=== PATIENT | male | born 1970 | race Caucasian/White ===

== ENCOUNTER 2024-05-21 08:20 | Inpatient (IN) | payer BC, OTHER ==
[2024-05-21] MEDS ORDERED: Sodium Chloride 0.9% 1,000 ML IV SCH (09:00)
[2024-05-21] MEDS: Sodium Chloride 0.9% 10 ML Syringe FLUSH ONE (09:03)
[2024-05-21] MEDS: Sodium Chloride 0.9% 100 ML IV SCH (09:03)
[2024-05-21] MEDS: Iopamidol 612 MG/ML 100 ML Bottle IV PRN (09:03)
[2024-05-21 09:05] LABS: APPEARANCE,URINE SLIGHTLY CLOUDY (CLEAR); BILIRUBIN,URINE SMALL (NEGATIVE); COLOR,URINE YELLOW (YELLOW); GLUCOSE,URINE 100 mg/dL (NEGATIVE); KETONES,URINE 40 mg/dL (NEGATIVE); LEUKOCYTE ESTERASE,URINE NEGATIVE (NEGATIVE); NITRITE,URINE NEGATIVE (NEGATIVE); OCCULT BLOOD,URINE NEGATIVE (NEGATIVE); PH,URINE 5.5 (5.0-8.0); PROTEIN,URINE 30 mg/dL (NEGATIVE); UROBILINOGEN,URINE 0.2 EU/dL (0.2-1.0)
[2024-05-21 09:06] LABS: EPITHELIAL CELLS,URINE NOT SEEN; RBC,URINE NOT SEEN (0-5); WBC,URINE 0-5 (0-5)
[2024-05-21 09:07] LABS: AMORPHOUS SEDIMENT,URINE RARE; BACTERIA,URINE RARE; MUCUS,URINE MODERATE
[2024-05-21 09:08] LABS: BASOPHILS ABSOLUTE AUTO 0.03 K/uL (0.00-0.10); BASOPHILS PERCENT AUTO 0.3 % (0.1-1.3); HEMATOCRIT 40.7 % (38.4-49.7); HEMOGLOBIN 14.8 g/dL (12.9-16.9); IMMATURE GRAN ABSOLUTE AUTO 0.02 K/uL (0.00-0.23); IMMATURE GRAN PERCENT AUTO 0.2 % (0.0-0.7); LYMPHOCYTES PERCENT AUTO 7.1 % (11.4-47.7); MEAN CORPUSCULAR HEMOGLOBIN 35.2 pg (31.6-35.5); MEAN CORPUSCULAR HGB CONC 36.4 g/dL (31.6-35.5); MEAN CORPUSCULAR VOLUME 96.9 fL (81.4-99.0); MONOCYTES ABSOLUTE AUTO 0.66 K/uL (0.20-0.90); MONOCYTES PERCENT AUTO 5.8 % (3.3-12.6); NEUTROPHILS ABSOLUTE AUTO 9.81 K/uL (1.0-7.6); NEUTROPHILS PERCENT AUTO 86.6 % (40.0-78.1); PLATELET COUNT,PLT 153 K/uL (130-375); WHITE BLOOD CELL COUNT,WBC 11.3 K/uL (3.2-11.0)
[2024-05-21] MEDS: Sodium Chloride 0.9% 1,000 ML IV SCH ×2 (09:18→10:57)
[2024-05-21] MEDS: Ondansetron 4 MG/2 ML SDV IVPUSH ONE (09:19)
[2024-05-21] MEDS: fentaNYL 50 MCG/ML SDV IVPUSH ONE ×2 (09:20→10:46)
[2024-05-21] MEDS: LORazepam 2 MG/ML SDV IVPUSH ONE (09:22)
[2024-05-21 09:29] LABS: A/G RATIO 1.2 (1.2-2.2); ALANINE AMINOTRANSFERASE,ALT 33 U/L (12-78); ALBUMIN 3.8 g/dL (3.4-5.0); ALKALINE PHOSPHATASE 66 U/L (46-116); ASPARTATE AMNIOTRANSFERASE,AST 43 U/L (15-37); BILIRUBIN TOTAL 1.5 mg/dL (0.2-1.0); BLOOD UREA NITROGEN,BUN 5 mg/dL (7-18); CALCIUM 9.3 mg/dL (8.5-10.1); CARBON DIOXIDE,CO2 19 mmol/L (21-32); CHLORIDE,CL 98 mmol/L (100-108); EST CRCL DRUG DOSING (CG) 76.73 mL/min; ESTIMATED GFR 90 mL/min (>60); GLUCOSE RANDOM 182 mg/dL (74-106); PROTEIN TOTAL,TP 6.9 g/dL (6.4-8.2); SODIUM,NA 137 mmol/L (140-148)
[2024-05-21 09:46] LABS: ANION GAP 22.6 mmol/L (5.0-14.0); POTASSIUM,K 2.6 mmol/L (3.6-5.2)
[2024-05-21] MEDS ORDERED: Potassium Chloride 20 MEQ, Lidocaine 1% 2 ML in Sodium Chloride 0.9% 100 ML IV SCH (10:45)
[2024-05-21] MEDS: Potassium Chloride 10 MEQ in Premix Bag 1 BAG IV SCH ×2 (10:50→12:58)
[2024-05-21] MEDS ORDERED: Potassium Chloride 10 MEQ in Premix Bag 1 BAG IV SCH (12:00)
[2024-05-21] MEDS: Potassium Chloride 20 MEQ Tab.ER PO ONE (12:57)
[2024-05-21] MEDS ORDERED: Naloxone 0.4 MG/ML SDV IVPUSH PRN (13:43)
[2024-05-21] MEDS ORDERED: Albuterol 0.083% 2.5 MG/3 ML Neb Soln NEB PRN (13:43)
[2024-05-21] MEDS ORDERED: Sodium Chloride 0.9% 10 ML Syringe FLUSH PRN (13:43)
[2024-05-21] MEDS ORDERED: Polyethylene Glycol 3350 Powder 17 GM Packet PO PRN (13:43)
[2024-05-21] MEDS: Pantoprazole 40 MG Vial IV SCH (14:17)
[2024-05-21] MEDS: Nicotine 21 MG/24 Hr Patch TRDERM SCH (14:27)
[2024-05-21] MEDS: Enoxaparin 40 MG/0.4 ML Syringe SUBCUT SCH (14:30)
[2024-05-21] MEDS: Folic Acid 1 MG Tab PO SCH (14:43)
[2024-05-21] MEDS: Multivitamins with Iron Tab.Chew CHEW SCH (14:44)
[2024-05-21] MEDS: Metoprolol Tartrate 25 MG Tab PO SCH (14:44)
[2024-05-21] MEDS: HYDROmorphone 0.5 MG/0.5 ML Syringe IVPUSH PRN (15:01)
[2024-05-21] MEDS: Rosuvastatin 10 MG Tab PO SCH (15:06)
[2024-05-21] MEDS: Fenofibrate,Micronized 67 MG Cap PO SCH (15:07)
[2024-05-21] MEDS: Lisinopril 20 MG Tab PO SCH (15:09)
[2024-05-21] MEDS: MVI, Adult with Vitamin K 10 ML, Thiamine 100 MG, Folic Acid 1 MG, Magnesium Sulfate 3 ... IV ONE (16:16)
[2024-05-21] MEDS: Gabapentin 300 MG Cap PO SCH (16:53)
[2024-05-21] MEDS: Ondansetron 4 MG/2 ML SDV IV PRN (20:06)
[2024-05-21] MEDS: Thiamine 100 MG Tab PO SCH (20:08)
[2024-05-21] MEDS: PHENobarbital 32.4 MG Tab PO PRN (20:17)
[2024-05-21] MEDS ORDERED: Metoprolol Tartrate 25 MG Tab PO SCH (21:00)
[2024-05-21] MEDS: Calcium Carbonate 500 MG Tab.Chew PO PRN (21:59)
[2024-05-22] MEDS: Sodium Chloride 0.9% 1,000 ML IV SCH (02:18)
[2024-05-22 05:58] LABS: HEMATOCRIT 39.1 % (38.4-49.7); HEMOGLOBIN 14.1 g/dL (12.9-16.9); MEAN CORPUSCULAR HEMOGLOBIN 35.8 pg (31.6-35.5); MEAN CORPUSCULAR HGB CONC 36.1 g/dL (31.6-35.5); MEAN CORPUSCULAR VOLUME 99.2 fL (81.4-99.0); RED BLOOD CELL COUNT 3.94 M/uL (4.14-5.76); WHITE BLOOD CELL COUNT,WBC 8.7 K/uL (3.2-11.0)
[2024-05-22 06:19] LABS: A/G RATIO 0.9 (1.2-2.2); ALANINE AMINOTRANSFERASE,ALT 6 U/L (12-78); ALBUMIN 2.7 g/dL (3.4-5.0); ALKALINE PHOSPHATASE 55 U/L (46-116); ASPARTATE AMNIOTRANSFERASE,AST 31 U/L (15-37); BILIRUBIN TOTAL 0.8 mg/dL (0.2-1.0); BLOOD UREA NITROGEN,BUN 6 mg/dL (7-18); CALCIUM 8.1 mg/dL (8.5-10.1); CARBON DIOXIDE,CO2 23 mmol/L (21-32); CHLORIDE,CL 106 mmol/L (100-108); CREATININE 0.8 mg/dL (0.8-1.3); EST CRCL DRUG DOSING (CG) 93.95 mL/min; ESTIMATED GFR 106 mL/min (>60); GLUCOSE RANDOM 121 mg/dL (74-106); MAGNESIUM 1.2 mg/dL (1.8-2.4); PROTEIN TOTAL,TP 5.6 g/dL (6.4-8.2); SODIUM,NA 137 mmol/L (140-148)
[2024-05-22] MEDS: oxyCODONE 5 MG Tab PO PRN (08:24)
[2024-05-22] MEDS ORDERED: Lisinopril 20 MG Tab PO SCH (09:00)
[2024-05-22] MEDS: Magnesium Sulfate/Water 2 GM in Premix Bag 1 BAG IV SCH (09:17)
[2024-05-22] MEDS: Magnesium Oxide 400 MG Tab PO SCH (09:26)
[2024-05-22] MEDS: Metoprolol Tartrate 25 MG Tab PO SCH (10:17)
[2024-05-22] MEDS: Hydrocortisone 1% Crm 30 GM Tube TOP SCH (10:18)
[2024-05-23] MEDS: Acetaminophen 325 MG Tab PO PRN (00:08)
[2024-05-23 05:08] LABS: HEMATOCRIT 30.5 % (38.4-49.7); HEMOGLOBIN 10.6 g/dL (12.9-16.9); MEAN CORPUSCULAR HEMOGLOBIN 35.3 pg (31.6-35.5); MEAN CORPUSCULAR HGB CONC 34.8 g/dL (31.6-35.5); MEAN CORPUSCULAR VOLUME 101.7 fL (81.4-99.0); WHITE BLOOD CELL COUNT,WBC 7.5 K/uL (3.2-11.0)
[2024-05-23 05:21] LABS: CALCIUM 7.6 mg/dL (8.5-10.1); CREATININE 0.9 mg/dL (0.8-1.3); EST CRCL DRUG DOSING (CG) 83.51 mL/min; MAGNESIUM 3.1 mg/dL (1.8-2.4); POTASSIUM,K 3.7 mmol/L (3.6-5.2)
[2024-05-23 05:26] LABS: ANION GAP 8.7 mmol/L (5.0-14.0)
[2024-05-23] MEDS ORDERED: Gabapentin 400 MG Cap PO SCH (16:00)
[2024-05-24] MEDS ORDERED: Gabapentin 400 MG Cap PO SCH (21:00)
[2024-05-25] MEDS ORDERED: Gabapentin 300 MG Cap PO SCH (21:00)
== END 2024-05-23 12:34 | disposition home or self-care (01) | DRG 282 ==
LOC: JP.ED 08:20 → JP.ICU 11:41
PROVIDERS: ADMIT Hospitalist; ATTEND Hospitalist
DX: K85.21 Alcohol induced acute pancreatitis with uninfected necrosis (principal); I10 Essential (primary) hypertension; E78.00 Pure hypercholesterolemia, unspecified; H54.7 Unspecified visual loss; E87.6 Hypokalemia; F10.939 Alcohol use, unspecified with withdrawal, unspecified; E83.42 Hypomagnesemia; F17.210 Nicotine dependence, cigarettes, uncomplicated; Z79.899 Other long term (current) drug therapy
CPT/HCPCS: 36415; 74177; 74177-26; 80048; 80053; 80307; 81001; 83690; 83735; 84132; 85025; 85027; 96361; 96365; 96375; 96376; 99222; 99232; 99238; 99284; 99285-25; A9270-GY; J1170; J1650; J2060; J2405; J2470; J2560; J3010; J3411; J3475; J3480; J3490; J7030; Q9967